=== PATIENT | female | born 1965 | race Caucasian/White ===

== ENCOUNTER 2016-07-12 14:44 | Emergency (ER) | payer MEDICAID ==
[2016-07-12 14:54] VITALS: BP 136/80; PULSE 84; RESP 20; TEMP 98.2; O2SAT 91
--- NOTE | 2016-07-12 15:39 | UCPHY ---
H & P Time Seen by Provider: 07/12/16 15:28 Patient Type: New HPI/ROS: CHIEF COMPLAINT: HISTORY OF PRESENT ILLNESS: The patient is a 50-year-old female with a history of chronic neck pain who presents with constant right-sided neck pain for 2 days. The pain radiates to her ear. She is hoping it is from an ear infection as it is unlike her prior longstanding DJD of the neck. It is worsened with movement, as she moves her trunk to move the head. It hurts her to swallow. She denies numbness, weakness, or paresthesias down her right arm. No lymphadenopathy, fever, vomiting, or other complaints. The pain today is different from her usual neck pain. Spent most of the year in until Mar on high dose Oxy, as per CPDMP that I checked. SHe reports she weaned off the medication by tapering as she did not like the stuff. REVIEW OF SYSTEMS: Constitutional: No fever, no chills. ENT: No sore throat. Musculoskeletal: As above. Skin: No rashes. Neurological: No headache. A little pain on the region of the scapula, right. Past Medical/Surgical History: Chronic neck pain. Social History: Smoker. Smoking Status: Current every day smoker Physical Exam: General Appearance: Alert, no distress. Afebrile. Normal phonation. No respiratory distress. Turning torso to turn head. Eyes: Pupils equal and round no pallor or injection. No icterus ENT, Mouth: Mucous membranes moist. Pharynx not erythematous and without exudate. TM Clear x2 Neck: No adenopathy. Supple. No JVD. Trachea in midline. Right neck pain with rotation of head. No pain with flexion or extension of neck. Tragus not tender to palpation. Larynx non-tender to palpation. Tenderness across sternocleidomastoid. No induration or swelling. Deep scalene muscle tenderness. Neurological: Ox3. No motor weakness. Sensation intact. Gait nl. Neg spurling. Reflexes nl. Skin: Warm and dry, no rashes. Musculoskeletal: No joint swelling. Extremities: No edema. Psychiatric: Nl affect, engaging in converstaion, annimated. Constitutional: Initial Vital Signs Temperature (C) 36.8 C 07/12/16 14:51 Heart Rate 84 07/12/16 14:51 Respiratory Rate 20 07/12/16 14:51 Blood Pressure 136/80 H 07/12/16 14:51 O2 Sat (%) 91 L 07/12/16 14:51 O2 Delivery Mode Room Air Allergies/Adverse Reactions: morphine Allergy (Verified 07/12/16 14:50) oxycodone Allergy (Verified 07/12/16 14:50) Home Medications: Medication Instructions Recorded Albuterol Unk Dose 11/05/12 Acetaminophen [Acetaminophen 8 1,300 mg PO Q12 #30 tablet.sa 07/12/16 Hour] CYCLOBENZAPRINE HCL [Flexeril] 5 - 101 mg PO TIDPRN PRN #15 tab 07/12/16 Naproxen 07/12/16 Medical Decision Making ED Course/Re-evaluation: 50-year-old female with a history of chronic neck pain who presents with right- sided neck pain that began 2 days ago. She has no radicular symptoms. She has a normal exam. She does have tenderness with palpation of the deep neck muscles. I think this represents a muscle strain. I looked this patient up on the [place] Prescription Drug Monitoring Program. She was taking Percocet for the second half of last year. She tells me that she weaned herself off narcotics using marijuana and does not want narcotics today. I have given her extensive instructions regarding Tylenol, Aspercreme, Tramadol, and Naproxen. She is comfortable with the plan. Differential Diagnosis: DDX includes but not limited to: Cervical Strain, herniated disc, muscle spasm, infecdtion, Otoitis Meida, Pharyngitis, cervical adenopathy. Departure - Departure Disposition: Home, Routine, Self-Care Clinical Impression: Cervical strain Qualifiers: Encounter type: initial encounter Qualified Code(s): S16.1XXA - Strain of muscle, fascia and tendon at neck level, initial encounter Condition: Good Instructions: Cervical Strain (ED) Additional Instructions: Try using [id number] Aspercreme for pain. It is a topical anesthetic. Apply for 12 hours then take it off. Take Tylenol arthritis formula as instructed (2 tablets twice a day). Continue your as Naprosyn Add Flexeril muscle relaxer, as needed. Twice a day, heat affected area for 10 minutes, massage the area for 10 minutes , and ice affected area for 10 minutes. Follow up with your primary care provider for reevaluation. Return for any serious worsening of condition, such as change in voice or fever.. Referrals: Jose Jackson MD [Primary Care Provider] - As per Instructions Stand Alone Forms: Work Excuse Prescriptions: Acetaminophen [Acetaminophen 8 Hour] 1,300 mg PO Q12 #30 tablet.sa CYCLOBENZAPRINE HCL [Flexeril] 5 - 101 mg PO TIDPRN PRN #15 tab PRN Reason: muscle spasm - PQRS PQRS Measurement: Does not apply. Report Scribed for: Christopher Taylor Report Scribed by: Louie Mendoza Date of Report: 07/12/16 Time of Report: 15:38
== END 2016-07-12 16:22 | disposition home or self-care (01) ==
LOC: CED 14:44
DX: S16.1XXA Strain of muscle, fascia and tendon at neck level, initial encounter (principal); H92.09 Otalgia, unspecified ear; Z72.0 Tobacco use
CPT/HCPCS: 99203-PO; G0463-PO

== ENCOUNTER 2017-01-05 16:45 | Emergency (ER) | payer MEDICAID ==
[2017-01-05 16:55] VITALS: BP 118/92; PULSE 88; RESP 20; TEMP 97.5; O2SAT 91
--- NOTE | 2017-01-05 17:12 | EDPHY ---
H & P Time Seen by Provider: 01/05/17 16:54 HPI/ROS: This patient presents with right hip pain. She drove herself by private vehicle and explains that she had atraumatic of onset of right hip ache that nearly subsides when she rests but with movement peaks at 7/10 intensity. She 1st noticed this about a month ago while doing yoga and the pain is gradually worsened in intensity. She tried marijuana for pain relief today and had partial relief. No other exacerbating factors are noted. She has not had this pain before. ROS: Constitutional: No fevers. HEENT: No complaints pulmonary: No shortness of breath. Chronic smoker's cough in the morning. Cardiovascular: No chest pain. GI: No complaints Musculoskeletal: No recent trauma. 7 point ROS is otherwise negative. Smoking Status: Current every day smoker Physical Exam: Vital signs are normal with exception of an O2 sat of 91% on room air General Appearance: Thin fit-appearing 51-year-old female Alert, no distress. Eyes: Pupils equal and round no pallor or injection. ENT, Mouth: Mucous membranes moist. Respiratory: There are no retractions, lungs are clear to auscultation. Cardiovascular: Regular rate and rhythm. Back: No midline lumbar tenderness. She does have mild right sided posterior hip pain versus sciatic notch tenderness. She has some limitation range of motion of forward flexion due to increased pain in the hip. Straight leg raise is negative bilaterally. Neurological: GCS 15. She maintains 5/5 strength thing plantar flexion and dorsiflexion of bilateral great toes. No light touch sensation deficits or lower extremities. Skin: Warm and dry, no rashes. Extremities -atraumatic normal except for right hip Right hip: Patient has tenderness to the lateral and posterior hip on exam. There is no tenderness the anterior superior iliac crest or lateral pelvis. She has mild limitation in range of motion in forward flexion due to increased pain in the hip without maneuver. Psychiatric: Mood and affect are normal. DIFFERENTIAL DIAGNOSIS: After history and physical exam differential diagnosis was considered for DJD, bursitis, injury to labrum, Mets to bone, pathologic fracture Constitutional: Initial Vital Signs Temperature (C) 36.4 C 01/05/17 16:53 Heart Rate 88 01/05/17 16:53 Respiratory Rate 20 01/05/17 16:53 Blood Pressure 118/92 H 01/05/17 16:53 O2 Sat (%) 91 L 01/05/17 16:53 O2 Delivery Mode Room Air Allergies/Adverse Reactions: morphine Allergy (Verified 01/05/17 16:53) oxycodone Allergy (Verified 01/05/17 16:53) Home Medications: Medication Instructions Recorded NK [No Known Home Meds] 01/05/17 MDM/Departure - MDM Diagnostics: Hip x-rays: Evidence of calcific tendinitis by my interpretation over the right greater trochanter. Minimal DJD. Otherwise normal. Imaging: I viewed and interpreted images myself (After making my diagnostic read I also discussed the study with radiologist) Medications Given: Discontinued Medications Ibuprofen (Motrin) 600 mg PO EDNOW ONE Stop: 01/05/17 17:34 Last Admin: 01/05/17 17:40 Dose: 600 mg ED Course/Re-evaluation: I counseled the patient regarding calcific tendinitis suggesting anti- inflammatories and rest. - Depart Disposition: Home, Routine, Self-Care Clinical Impression: Calcific tendinitis Condition: Good Instructions: Calcific Tendinitis (ED) Additional Instructions: Diagnosis: Calcific tendinitis-right hip greater trochanter Plan: Ice tip 20 minutes at a time 3 times a day until symptoms resolve Ibuprofen or Aleve in addition-take this regularly for the next 7-14 days until symptoms resolve Tylenol in addition if needed for pain control Consider other anti-inflammatories of your choice. Gentle stretching each day Limit activity until your symptoms improve Follow up with primary care physician for any ongoing symptoms despite the treatment plan. Referrals: NONE *PRIMARY CARE P,. [Primary Care Provider] - As per Instructions Roddy Neal MD [Medical Doctor] - As per Instructions
[2017-01-05] MEDS ORDERED: IBUPROFEN 600 MG TAB PO ONE (17:33)
== END 2017-01-05 17:45 | disposition home or self-care (01) ==
LOC: CED 16:45
DX: M65.28 Calcific tendinitis, other site (principal); F17.200 Nicotine dependence, unspecified, uncomplicated
CPT/HCPCS: 73502-PO

== ENCOUNTER 2017-02-10 08:27 | Emergency (ER) | payer MEDICAID ==
--- NOTE | 2017-02-10 08:37 | EDPHY ---
H & P Time Seen by Provider: 02/10/17 08:34 HPI/ROS: CHIEF COMPLAINT: Left posterior shoulder pain, left arm pain HISTORY OF PRESENT ILLNESS: 51-year-old female who reports that for the last 6 days she has had significant and ongoing discomfort across the posterior left shoulder, over her deltoid, and into her left triceps. Patient complains that the pain is excruciating. Patient states that the arm feels " ". Denies specific weakness although the using the has caused some increase in her discomfort. No trauma. No swelling of the shoulder joint. No erythema. No rash. No warmth. Denies any injury to the shoulder joint itself. Denies weakness. Patient reports a prior history of cervical fracture. She is concerned that the discomfort coming from her neck. No anterior chest pain. No pleuritic discomfort. No cough. No fever. No shortness of breath. No palpitations. REVIEW OF SYSTEMS: Aside from elements discussed in the HPI, a comprehensive 10-point review of systems was reviewed and is negative. PAST MEDICAL HISTORY: Cervical fracture. SOCIAL HISTORY: Smoker. Does use marijuana to help treat her pain. VITAL SIGNS Reviewed by me. GENERAL: Well-developed, well-nourished, seems uncomfortable. HEENT: Atraumatic. Eyes: No icterus, no injection. Mouth: Slightly dry lips. Moist mucous membranes. No erythema or lesions. Neck: Tender to palpation throughout. Patient reports chronic pain in her neck. LUNGS: Clear to auscultation bilaterally, no wheezes, rhonchi or rales. CARDIAC: Regular rate and rhythm, no rubs, murmurs or gallops. ABDOMEN: Soft, nontender, nondistended, bowel sounds normal. BACK: No CVA tenderness. No palpable tenderness across the scapula on the left. No rash. EXTREMITIES: Full range of motion at the shoulder joint with no discomfort. Radius and ulnar pulses intact. NEURO: Alert and oriented x3. Motor strength: Deltoid, triceps weakness on the left. Sensation intact to light touch. SKIN: Warm and dry, no rash. PSYCHIATRIC: Normal mentation, no agitation. Smoking Status: Current every day smoker Constitutional: Initial Vital Signs Temperature (C) 36.8 C 02/10/17 08:34 Heart Rate 80 02/10/17 08:34 Respiratory Rate 18 02/10/17 08:34 Blood Pressure 102/80 02/10/17 08:34 O2 Sat (%) 91 L 02/10/17 08:34 O2 Delivery Mode Room Air Allergies/Adverse Reactions: morphine Allergy (Verified 02/10/17 08:31) oxycodone Allergy (Verified 02/10/17 08:31) Home Medications: Medication Instructions Recorded Cyclobenzaprine [Flexeril 10 MG 10 mg PO TID PRN #20 tab 02/10/17 (RX)] Mmj 02/10/17 methylPREDNISolone [Medrol Dose 4 mg PO DAILY #1 ea 02/10/17 Erick] Medical Decision Making - Diagnostics EKG Interpretation: 12-LEAD EKG: Please see the full report in [facility]. My interpretation: [ ] Imaging Results: Imaging Impressions Chest X-Ray 02/10/17 08:56 Impression: Prominent lung volumes. Airways disease? Cervical Spine MRI 02/10/17 10:21 Impression: Multilevel degenerative disk and degenerative joint disease in the cervical spine. The levels of more significant encroachment are at C5-C6 and C6- C7, with a stable appearance. The facet arthropathy on the left has worsened at C4-C5, with stable continued moderate left neural foraminal narrowing. Results called and discussed with Dr. Tiffany Dumont on February 10, 2017 at 1252 hours. Imaging: I viewed and interpreted images myself ED Course/Re-evaluation: 51-year-old female presenting with atraumatic discomfort in the cervical spine, radiation onto the trapezius area and posterior left scapular area with radiation onto the deltoid and triceps. Patient appears moderately uncomfortable. She was given Toradol IM, Flexeril, and Tylenol. Patient declined ketamine and Decadron. Chest x-ray was normal. Patient has had minimal relief with the medications. We discussed transfer to [facility] to obtain further evaluation including an MRI. Patient is in agreement with this. Patient proceeded to [facility] and had an MRI obtained. Results of the MRI were called to me by Radiology. Patient has no acute disc herniation although she does have worsening of her facet arthropathy especially on the left. I discussed results of the MRI with the patient. She was advised to follow up with Dr. devan escoto, from neurosurgery. She was given his number and name. Differential Diagnosis: Differential diagnoses for the patient's symptom complex was considered including but not limited to radicular pain, muscle spasm, cervical disc herniation, chronic pain. - Data Points Medications Given: Discontinued Medications Acetaminophen (Tylenol) 1,000 mg PO EDNOW ONE Stop: 02/10/17 08:56 Last Admin: 02/10/17 09:37 Dose: 1,000 mg Cyclobenzaprine HCl (Flexeril) 10 mg PO EDNOW ONE Stop: 02/10/17 08:56 Last Admin: 02/10/17 09:37 Dose: 10 mg Ketamine HCl (Ketamine) 50 mg NASAL EDNOW ONE Stop: 02/10/17 08:56 Last Admin: 02/10/17 09:43 Dose: Not Given Ketorolac Tromethamine (Toradol) 15 mg IM EDNOW ONE Stop: 02/10/17 08:56 Last Admin: 02/10/17 09:42 Dose: 15 mg Lidocaine (Lidoderm 5%) 1 ea TD EDNOW ONE Stop: 02/10/17 10:46 Last Admin: 02/10/17 10:56 Dose: 1 ea Departure - Departure Disposition: Home, Routine, Self-Care Clinical Impression: Pain of left shoulder region, possible cervical disc herniation Condition: Good Instructions: Cervical Radiculopathy (ED), Shoulder Pain (ED) Additional Instructions: Proceed to [facility]. Check-in at radiology. You will have a MRI of your cervical spine. We will discuss the results afterwards. Depending on the findings you may need further evaluation. For your discomfort I recommend the followin. I recommend Ibuprofen (Motrin, Advil) or Naproxen Sodium (Aleve) for pain and anti-inflammatory effects. You may take either one, but do not take both. Your dose is: Ibuprofen 600 mg every 6-8 hours with food. OR Naproxen Sodium (Aleve) 220 mg every 12 hours. You have also been given a prescription for a Medrol Dosepak to use as directed to treat inflammation. Please begin taking this tomorrow. 2. For muscle relaxation, you been given a prescription of Flexeril. Please take this as directed. It may make you sleepy. 3. For pain relief, I suggest high-dose Tylenol (650mg-1000mg of Tylenol) up to 3 times a day. Not exceed 3000 mg in a 24 hour period. I also suggest lidocaine patches. 4% lidocaine patches are available over-the- counter. Please follow up with your primary care physician if you're not improving as expected in the next several days. Consider physical therapy or chiropractic followup for persistent discomfort. Return to the emergency department if you experience significantly worsening pain, pain radiating into the legs, weakness, numbness or tingling, difficulties with bowel or bladder, fever, nausea, vomiting, or other concerns. . Referrals: NONE *PRIMARY CARE P,. [Primary Care Provider] - As per Instructions Jose Jackson MD [Medical Doctor] - As per Instructions (Follow up with Dr. Jackson or someone in his office. He will help guide further treatment) Mik Baptiste MD [Medical Doctor] - As per Instructions (Dr. Baptiste is an orthopedic surgeon. Please follow up with him if it appears your pain is more related to your shoulder joint.) Pacheco Kelly MD [Medical Doctor] - As per Instructions (Dr. Kelly is a neurosurgeon. If needed, you would be referred to him.) Stand Alone Forms: Work Limited Duty, Work Excuse Prescriptions: Cyclobenzaprine [Flexeril 10 MG (RX)] 10 mg PO TID PRN #20 tab PRN Reason: Muscle Spasms methylPREDNISolone [Medrol Dose Erick] 4 mg PO DAILY #1 ea
[2017-02-10 08:40] VITALS: TEMP 98.2
[2017-02-10] MEDS ORDERED: ACETAMINOPHEN 500 MG TAB PO ONE (08:55)
[2017-02-10] MEDS ORDERED: CYCLOBENZAPRINE 10 MG TAB PO ONE (08:55)
[2017-02-10] MEDS ORDERED: KETAMINE 500 MG/10 ML VIAL NASAL ONE (08:55)
[2017-02-10] MEDS ORDERED: KETOROLAC 15 MG/1 ML SDV IM ONE (08:55)
--- NOTE | 2017-02-10 10:23 | CPEKG ---
Heart Rate: 68 RR Interval: 882 P-R Interval: 164 QRSD Interval: 80 QT Interval: 416 QTC Interval: 443 P Nogal: 46 QRS Nogal: 63 T Wave Nogal: 72 EKG Severity - ABNORMAL ECG - EKG Impression: SINUS RHYTHM EKG Impression: VENTRICULAR TRIGEMINY EKG Impression: CONSIDER LEFT VENTRICULAR HYPERTROPHY Electronically Signed By: Gregory Nowak 14-Feb-2017 11:52:50
[2017-02-10] MEDS ORDERED: LIDOCAINE 5% 1 EA PATCH TD ONE (10:45)
[2017-02-10 11:14] VITALS: BP 110/78; PULSE 78; RESP 16; O2SAT 92
--- NOTE | 2017-02-10 17:02 | ASMTCMCOM ---
CM Note CM Note Notes: CM asked by Dr. Dumont to follow up with Dr. Kelly's office and patient regarding a referral patient received today at the [facility] [place], [place]. I spoke with Lamar at Dr. Wiley's office and faxed over the ED provider report, demographics, and MRI from patient's visit earlier today in hopes to facilitate patient appointment. Patient contacted by me shortly after and she confirms that she does have an appointment scheduled Date Signed: 02/10/2017 05:01 PM Electronically Signed By:Zofia Olson RN
[2017-02-10] MEDS ORDERED: PATCH REMOVAL 1 EA PATCH TD SCH (21:00)
== END 2017-02-10 11:05 | disposition home or self-care (01) ==
LOC: CED 08:27
DX: M25.512 Pain in left shoulder (principal); F17.200 Nicotine dependence, unspecified, uncomplicated
CPT/HCPCS: 71020-PO; J1885

== ENCOUNTER 2017-06-12 11:51 | Emergency (ER) | payer MEDICAID ==
[2017-06-12 12:12] VITALS: RESP 16; TEMP 97.9
--- NOTE | 2017-06-12 12:17 | EDPHY ---
H & P Time Seen by Provider: 06/12/17 11:57 HPI/ROS: 51 yo F presents c/o left 4th toe pain for several weeks, she is here today because it is painful and she is worried it maybe toe cancer like the one Ralf Patel of in 1980. He actually had malignant melanoma. She states it has had some drainage. No fever or chills. Review of systems As per HPI General no fever no chills no weakness HEENT no eye pain no eye discharge. No eye redness, no sore throat Respiratory no cough, no shortness of breath Cardiac no chest pain, no peripheral edema GI no abdominal pain, no diarrhea, no constipation, no nausea, no vomiting no flank pain, no hematuria, no dysuria Musculoskeletal no myalgias, positive toe pain Heme no easy bruising, no easy bleeding Endo no polyuria, no polydipsia Skin no rashes, no pruritus Neuro no syncope, no dizziness, no headaches Psych is no suicidal ideation, no homicidal ideation Past Medical/Surgical History: non contributory Social History: denies alcohol or drug abuse Smoking Status: Former smoker Physical Exam: 51-year-old female alert and oriented no acute distress nontoxic appearance afebrile Atraumatic normocephalic Neck no JVD Lungs clear to auscultation, no respiratory distress Heart regular rate and rhythm Extremities no cyanosis clubbing edema Left foot left 4th toe lateral aspect of left 4th toe with area of thickened erythematous skin tender to palpation non fluctuant no drainage No lymphangitic streaks Good capillary refill Constitutional: Initial Vital Signs Temperature (C) 36.6 C 06/12/17 12:07 Heart Rate 70 06/12/17 12:07 Respiratory Rate 16 06/12/17 12:07 Blood Pressure 152/89 H 06/12/17 12:07 O2 Sat (%) 92 06/12/17 12:07 O2 Delivery Mode Room Air Allergies/Adverse Reactions: morphine Allergy (Verified 06/12/17 12:05) oxycodone Allergy (Verified 06/12/17 12:05) narcotics Allergy (Uncoded 06/12/17 12:05) Home Medications: Medication Instructions Recorded Cyclobenzaprine [Flexeril 10 MG 10 mg PO TID PRN #20 tab 02/10/17 (RX)] Cephalexin 500 mg PO QID 7 Days #28 tablet 06/12/17 Medical Decision Making - Diagnostics Imaging Results: Imaging Impressions Foot X-Ray 06/12/17 12:06 Impression: 1. No evidence for acute fracture. Ossification dorsal to the DIP joint fourth toe is sequela from prior trauma. 2. Mild hallux vagus and bunion deformity. Minimal early degenerative change first metatarsophalangeal joint. ED Course/Re-evaluation: Patient seen for toe pain of 3-4 weeks duration left 4th toe. xrays neg noted bunion first toe no fractures, no osteo imp corn or blister with local secondary infection plan cephalexin soaks pcp Differential Diagnosis: Differential diagnosis considered but not limited to: Cellulitis, osteomyelitis, corns, callosities, blister, infected blister, toe fracture Departure - Departure Disposition: Home, Routine, Self-Care Clinical Impression: Toe pain, left Condition: Good Instructions: Cellulitis (ED), Blister (ED) Additional Instructions: Follow up with your primary doctor this week if not improving. Referrals: ADITYA MALDONADO [Primary Care Provider] - As per Instructions Prescriptions: Cephalexin 500 mg PO QID 7 Days #28 tablet
[2017-06-12 18:35] VITALS: BP 146/88; PULSE 66; O2SAT 93
== END 2017-06-12 13:18 | disposition home or self-care (01) ==
LOC: CED 11:51
DX: M79.675 Pain in left toe(s) (principal); Z87.891 Personal history of nicotine dependence
CPT/HCPCS: 73630-PO

== ENCOUNTER 2017-11-30 10:22 | Emergency (ER) | payer MEDICAID ==
[2017-11-30 10:33] VITALS: BP 124/74
--- NOTE | 2017-11-30 11:26 | EDPHY ---
H & P Stated Complaint: HIT IN HEAD YEST BY GRANDSONS HEAD , BLOODY NOSE RESOLVED Time Seen by Provider: 11/30/17 10:26 HPI/ROS: 52-year-old female presents complaining of grandson accidentally hit her in the nose as he was standing up and she was bending over, she states her nose bled immediately and she was able to get that under control however has had an ongoing nose pain and headache since that time. No loss of consciousness no nausea vomiting. No fevers or chills. No neck pain. No difficulty breathing through her nose. Review of systems As per HPI-positive nasal pain General no fever no chills no weakness HEENT no eye pain no eye discharge. No eye redness, no sore throat Respiratory no cough, no shortness of breath Cardiac no chest pain, no peripheral edema GI no abdominal pain, no diarrhea, no constipation, no nausea, no vomiting no flank pain, no hematuria, no dysuria Musculoskeletal no myalgias, no joint pain Heme no easy bruising, no easy bleeding Endo no polyuria, no polydipsia Skin no rashes, no pruritus Neuro no syncope, no dizziness, positive headaches Source: Patient Exam Limitations: No limitations - Personal History LMP (Females 10-55): Post Menopausal Current Tetanus/Diphtheria Vaccine: Unsure Current Tetanus Diphtheria and Acellular Pertussis (TDAP): Unsure - Medical/Surgical History Hx Asthma: Yes Hx Chronic Respiratory Disease: No Hx Diabetes: No Hx Cardiac Disease: No Hx Renal Disease: No Hx Cirrhosis: No Hx Alcoholism: Yes Hx HIV/AIDS: No Hx Splenectomy or Spleen Trauma: No Other PMH: c3-c7 issues, degenerative disc disease,asthma. 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 however no gross deformity or swelling or ecchymosis No septal hematoma No active nasal bleeding No evidence of bleeding on septum OP normal, no trismus Neck supple, full range of motion Lungs clear to auscultation bilaterally no respiratory distress Heart regular rate and rhythm without murmur rub or gallop Extremities no CCE Constitutional: Initial Vital Signs Temperature (C) 37.1 C 11/30/17 10:26 Heart Rate 64 11/30/17 10:26 Respiratory Rate 16 11/30/17 10:26 Blood Pressure 124/74 H 11/30/17 10:26 O2 Sat (%) 92 11/30/17 10:26 O2 Delivery Mode Room Air Allergies/Adverse Reactions: morphine Allergy (Verified 11/30/17 10:35) oxycodone Allergy (Verified 11/30/17 10:35) narcotics Allergy (Uncoded 11/30/17 10:35) Home Medications: Medication Instructions Recorded Cyclobenzaprine [Flexeril 10 MG 10 mg PO TID PRN #20 tab 02/10/17 (RX)] Naproxen 11/30/17 Medical Decision Making - Diagnostics Imaging Results: Imaging Impressions Nasal Bones X-Ray 11/30/17 10:44 Impression: 1. Nondisplaced distal nasal bone fracture. ED Course/Re-evaluation: Patient seen and evaluated for trauma to nose, with nasal pain and headache. Nasal films Positive nondisplaced nasal fracture Impression Nasal fracture Plan Ice, acetaminophen, ibuprofen as needed for pain Follow-up with primary care physician Differential Diagnosis: Differential diagnosis considered but not limited to: Nasal contusion, nasal fracture Departure - Departure Disposition: Home, Routine, Self-Care Clinical Impression: Nasal bones, closed fracture Condition: Good Instructions: Nasal Fracture (ED) Additional Instructions: Ice, acetaminophen or ibuprofen as needed for pain. Follow up with your primary care physician if not improving in 1-2 weeks. Referrals: ADITYA MALDONADO [Primary Care Provider] - As per Instructions
== END 2017-11-30 11:24 | disposition home or self-care (01) ==
LOC: CED 10:22
DX: S02.2XXA Fracture of nasal bones, initial encounter for closed fracture (principal); W51.XXXA Accidental striking against or bumped into by another person, initial encounter; Y93.89 Activity, other specified
CPT/HCPCS: 70160-PO

== ENCOUNTER → 2018-03-29 | Outpatient (CLI) | payer MEDICAID | LOC: FIMAGING 15:37 | PROVIDERS: ATTEND Neurological Surgery | DX: M50.322 Other cervical disc degeneration at C5-C6 level (principal); M50.323 Other cervical disc degeneration at C6-C7 level; M48.03 Spinal stenosis, cervicothoracic region; M99.71 Connective tissue and disc stenosis of intervertebral foramina of cervical region ==

== ENCOUNTER → 2018-07-23 | Outpatient (CLI) | payer MEDICAID | LOC: FIMAGING 12:02 | PROVIDERS: ATTEND Neurological Surgery | DX: M16.11 Unilateral primary osteoarthritis, right hip (principal); M51.36 Other intervertebral disc degeneration, lumbar region ==